=== PATIENT | female | born 1960 | race Caucasian/White ===

== ENCOUNTER 2017-03-09 14:02 | Emergency (ER) | payer OTHER | END 2017-03-09 17:00 | disposition left against medical advice (07) | LOC: ER1 14:02 | DX: Z53.21 Procedure and treatment not carried out due to patient leaving prior to being seen by health care provider (principal) | CPT/HCPCS: J7030 ==

== ENCOUNTER 2021-08-19 15:16 | Emergency (ER) | payer OTHER ==
[~2021-08-19 15:16] MED LIST: OMNICEF 300 MG300 MG PO; ZITHROMAX500 MG PO
[2021-08-19 16:22] LABS: HEMOGLOBIN 13.8 gm/dl (12.3-15.3); RED BLOOD COUNT 4.45 M/UL (4.00-5.10); WHITE BLOOD COUNT 8.8 K/UL (4.5-11.0)
[2021-08-19 16:45] LABS: BUN/CREATININE RATIO 15 (0-10)
== END 2021-08-19 17:35 | disposition left against medical advice (07) ==
LOC: ER1 15:16
PROVIDERS: Student in an Organized Health Care Education/Training Program
DX: I63.9 Cerebral infarction, unspecified (principal); R29.704 NIHSS score 4; Z86.73 Personal history of transient ischemic attack (TIA), and cerebral infarction without residual deficits
CPT/HCPCS: 70450; 71045; 80053; 82550; 82553; 83874; 84484; 85025; 85610; 85730; 93005; 99285

== ENCOUNTER 2022-05-16 15:14 | Emergency (ER) | payer OTHER | END 2022-05-16 16:42 | disposition left against medical advice (07) | LOC: ER1 15:14 | DX: Z53.21 Procedure and treatment not carried out due to patient leaving prior to being seen by health care provider (principal) ==